=== PATIENT | male | born 1995 | race Caucasian/White ===

== ENCOUNTER 2017-07-17 18:28 | Emergency (ER) | payer SELFPAY ==
[2017-07-17 18:47] VITALS: BP 131/90
== END 2017-07-17 20:58 | disposition left against medical advice (07) ==
LOC: ED 18:28
DX: Z53.21 Procedure and treatment not carried out due to patient leaving prior to being seen by health care provider (principal)

== ENCOUNTER 2017-10-11 17:22 | Emergency (ER) | payer SELFPAY ==
[2017-10-11 17:43] VITALS: BP 120/83
--- NOTE | 2017-10-11 18:24 | XRay Report ---
FINAL REPORT PROCEDURE: XR HAND 3+V LT TECHNIQUE: LEFT hand radiographs, AP, lateral, and oblique views. CPT 79823-PV HISTORY: injury to left thumb COMPARISON: No prior studies are available for comparison. FINDINGS: Fracture (s) and/or Dislocation(s): None . Alignment: Normal . Joint space(s): Normal . Soft tissues: Normal . Bone mineralization: Normal . Foreign bodies: None . IMPRESSION: Normal Examination .
== END 2017-10-11 23:05 | disposition left against medical advice (07) ==
LOC: ED 17:22
DX: M79.645 Pain in left finger(s) (principal); Z53.21 Procedure and treatment not carried out due to patient leaving prior to being seen by health care provider

== ENCOUNTER 2021-07-02 23:00 | Emergency (ER) | payer SELFPAY ==
[2021-07-02 23:35] VITALS: BP 134/92
[2021-07-03] MEDS ORDERED: predniSONE 20 MG TAB PO ONE (01:03)
[2021-07-03] MEDS ORDERED: KETOROLAC 60 MG/2 ML INJ IM ONE (01:03)
--- NOTE | 2021-07-03 01:13 | Emergency Department Report ---
Blank Doc - Documentation Documentation: As I enter the room, patient was on the phone and stated to me that he is on a emergency call in for me to return in a few minutes. Since then, patient was not in his room. I did not examine, interview, or have any interactions with the patient due to patient not being in the room. RN stated was unable to get in touch with the patient. Patient eloped at this time.
== END 2021-07-03 01:34 ==
LOC: ED 23:00
DX: M54.2 Cervicalgia (principal); M25.519 Pain in unspecified shoulder; Z53.21 Procedure and treatment not carried out due to patient leaving prior to being seen by health care provider

== ENCOUNTER 2021-09-10 07:07 | Emergency (ER) | payer SELFPAY | END 2021-09-10 09:15 | disposition left against medical advice (07) | LOC: ED 07:07 | DX: G50.1 Atypical facial pain (principal); Z53.21 Procedure and treatment not carried out due to patient leaving prior to being seen by health care provider ==

== ENCOUNTER 2021-09-13 05:00 | Emergency (ER) | payer SELFPAY ==
[2021-09-13 06:16] VITALS: BP 144/78
--- NOTE | 2021-09-13 06:20 | Emergency Department Report ---
ED ENT HPI - General Chief complaint: Dental/Oral Stated complaint: TOOTH PAIN Time Seen by Provider: 09/13/21 06:15 Source: patient Mode of arrival: Ambulatory Limitations: No Limitations - History of Present Illness Initial comments: 26-year-old -Filipino male presents to the emergency room for improving dental pain and sore throat x6 days. Patient states has been taking ibuprofen. Patient says he has a slight headache. He is unvaccinated. Has not tested for Covid in over a month. Does have a primary care provider. Currently wears bra marline. MD complaint: tooth pain, sore throat Onset/Timin -: days(s) Severity scale (0 -10): 2 Quality: aching Consistency: intermittent Improves with: NSAID Worsens with: none Associated Symptoms: toothache, pain with swallowing, sore throat. denies: fever, cough, gum swelling, tinnitus, hearing loss, discharge from ear, rhinorrhea, other - Related Data Allergies Allergy/AdvReac Type Severity Reaction Status Date / Time No Known Allergies Allergy Verified 07/02/21 23:37 ED Dental HPI - General Chief complaint: Dental/Oral Stated complaint: TOOTH PAIN Time Seen by Provider: 09/13/21 06:15 Source: patient Mode of arrival: Ambulatory Limitations: No Limitations - Related Data Allergies Allergy/AdvReac Type Severity Reaction Status Date / Time No Known Allergies Allergy Verified 07/02/21 23:37 ED Review of Systems ROS: Stated complaint: TOOTH PAIN Other details as noted in HPI Comment: All other systems reviewed and negative ED Past Medical Hx - Past Medical History Previous Medical History?: Yes Additional medical history: laryngitis - Surgical History Past Surgical History?: No - Social History Smoking Status: Current Every Day Smoker Substance Use Type: None ED Physical Exam - General Limitations: No Limitations General appearance: alert, in no apparent distress - Head Head exam: Present: atraumatic, normocephalic - Eye Eye exam: Present: normal appearance - ENT ENT exam: Present: mucous membranes moist - Neck Neck exam: Present: normal inspection, full ROM. Absent: tenderness, lymphadenopathy - Respiratory Respiratory exam: Present: normal lung sounds bilaterally. Absent: respiratory distress - Cardiovascular Cardiovascular Exam: Present: regular rate, normal rhythm. Absent: systolic murmur, diastolic murmur, rubs, gallop - GI/Abdominal GI/Abdominal exam: Present: soft, normal bowel sounds - Rectal Rectal exam: Present: deferred - Extremities Exam Extremities exam: Present: normal inspection - Back Exam Back exam: Present: normal inspection - Neurological Exam Neurological exam: Present: alert, oriented X3, normal gait - Psychiatric Psychiatric exam: Present: normal affect, normal mood - Skin Skin exam: Present: warm, dry, intact, normal color. Absent: rash ED Medical Decision Making - Medical Decision Making 26-year-old -Filipino male presents to the emergency room for improving dental pain and sore throat x6 days. Patient states has been taking ibuprofen. Patient says he has a slight headache. He is unvaccinated. Has not tested for Covid in over a month. Does have a primary care provider. Currently wears b races. Examination is normal do not see any gingival enlargement not erythematous throat with exudate no fever no chills vital signs are all stable none toxic in appearance patient is stable to follow-up with his primary care provider and primary dentist. Critical care attestation.: If time is entered above; I have spent that time in minutes in the direct care of this critically ill patient, excluding procedure time. ED Disposition Clinical Impression: Pain, dental, Sore throat Disposition: 01 HOME / SELF CARE / HOMELESS Is pt being admited?: No Does the pt Need Aspirin: No Condition: Stable Additional Instructions: Continue with ibuprofen as needed. Increase your fluids. Follow-up with a dentist and your primary care provider. Referrals: [facility] [Outside] - 3-5 Days [facility] [Outside] - 3-5 Days [facility] [Outside] - 3-5 Days Forms: Work/School Release Form(ED) Time of Disposition: 06:22
== END 2021-09-13 07:05 | disposition home or self-care (01) ==
LOC: ED 05:00
DX: K08.89 Other specified disorders of teeth and supporting structures (principal); J02.9 Acute pharyngitis, unspecified
CPT/HCPCS: 99282

== ENCOUNTER 2021-09-16 06:21 | Emergency (ER) | payer SELFPAY ==
--- NOTE | 2021-09-16 07:57 | Emergency Department Report ---
ED ENT HPI - General Chief complaint: Sore Throat Stated complaint: MOUTH PAIN Time Seen by Provider: 09/16/21 07:43 Source: patient Mode of arrival: Ambulatory Limitations: No Limitations - History of Present Illness Initial comments: This is a 26-year-old male nontoxic, well nourished in appearance, no acute signs of distress presents to the ED with c/o of acute on chronic intermittent left upper toothache several weeks. Patient denies following up with a dentist. Patient stated that pain radiates from his job to his left side of head. Patient otherwise denies any head trauma. Patient stated has been taking only 200 mg ibuprofen with no significant improvement of pain. Patient describes toothache as aching level of 8 out of 10. Patient denies any facial swelling. Patient denies any numbness, tingling, fever, chills, headache, stiff neck, abdominal pain, chest pain, shortness of breath. Patient denies any drug allergies or significant past medical history. MD complaint: tooth pain Location: tooth # 1 - Pain here Severity: mild Severity scale (0 -10): 8 Quality: aching Consistency: constant Improves with: none Worsens with: none Associated Symptoms: toothache. denies: fever, cough, gum swelling, pain with swallowing, sore throat, tinnitus, hearing loss, discharge from ear, rhinorrhea - Related Data Allergies Allergy/AdvReac Type Severity Reaction Status Date / Time No Known Allergies Allergy Verified 07/02/21 23:37 ED Dental HPI - General Chief complaint: Sore Throat Stated complaint: MOUTH PAIN Time Seen by Provider: 09/16/21 07:43 Source: patient Mode of arrival: Ambulatory Limitations: No Limitations - Related Data Allergies Allergy/AdvReac Type Severity Reaction Status Date / Time No Known Allergies Allergy Verified 07/02/21 23:37 ED Review of Systems ROS: Stated complaint: MOUTH PAIN Other details as noted in HPI Comment: All other systems reviewed and negative Constitutional: denies: chills, fever Eyes: denies: eye pain, eye discharge, vision change ENT: dental pain. denies: ear pain, throat pain, hearing loss, epistaxis, congestion Respiratory: denies: cough, shortness of breath, wheezing Cardiovascular: denies: chest pain, palpitations Endocrine: no symptoms reported Gastrointestinal: denies: abdominal pain, nausea, diarrhea Genitourinary: denies: urgency, dysuria Musculoskeletal: denies: back pain, joint swelling, arthralgia Skin: denies: rash, lesions Neurological: denies: headache, weakness, paresthesias Psychiatric: denies: anxiety, depression Hematological/Lymphatic: denies: easy bleeding, easy bruising ED Past Medical Hx - Past Medical History Additional medical history: laryngitis - Social History Smoking Status: Current Every Day Smoker Substance Use Type: None ED Physical Exam - General Limitations: No Limitations General appearance: alert, in no apparent distress - Head Head exam: Present: atraumatic, normocephalic - Eye Eye exam: Present: normal appearance - Expanded ENT Exam Expanded Ear exam: Present: normal external inspection Mouth exam: Present: normal external inspection. Absent: drooling, trismus, muffled voice Teeth exam: Present: normal inspection, dental tenderness #. Absent: dental caries, fractured tooth #, gingival enlargement 1 - Dental Tenderness Throat exam: Positive: normal inspection, other (uvula midline). Negative: tonsillar erythema, tonsillomegaly, tonsillar exudate, R peritonsillar mass, L peritonsillar mass - Neck Neck exam: Present: normal inspection, full ROM. Absent: tenderness, meningismus, lymphadenopathy - Respiratory Respiratory exam: Absent: respiratory distress - Cardiovascular Cardiovascular Exam: Present: regular rate - Extremities Exam Extremities exam: Present: full ROM - Back Exam Back exam: Present: full ROM - Neurological Exam Neurological exam: Present: alert, oriented X3, normal gait - Psychiatric Psychiatric exam: Present: normal affect, normal mood - Skin Skin exam: Present: warm, dry, intact, normal color. Absent: rash ED Course Vital Signs 09/16/21 07:41 Temperature 97.9 F Pulse Rate 63 Respiratory 20 Rate Blood Pressure 147/95 [Right] O2 Sat by Pulse 100 Oximetry - Reevaluation(s) Reevaluation #1: 09/16/21 07:57 Patient is speaking in full sentences with no signs of distress noted. ED Medical Decision Making - Medical Decision Making 26-year-old male that presents with left-sided wisdom tooth pain. Patient stable and was examined by me. Physical exam otherwise unremarkable. Patient was educated to take 600 mg of ibuprofen every 8 hours for pain. Patient also is given referrals to see a dental specialist. At time of discharge, the patient does not seem toxic or ill in appearance. No acute signs of distress noted. Patient agrees to discharge treatment plan of care. No further questions noted by the patient. Critical care attestation.: If time is entered above; I have spent that time in minutes in the direct care of this critically ill patient, excluding procedure time. ED Disposition Clinical Impression: Pain, dental Disposition: 01 HOME / SELF CARE / HOMELESS Is pt being admited?: No Does the pt Need Aspirin: No Condition: Stable Instructions: Acute Pain, Adult Additional Instructions: Follow-up with a dentist doctor in 3-5 days or if symptoms worsen and continue return to emergency room as soon as possible. Referrals: [facility] [Outside] - 3-5 Days [facility] [Outside] - 3-5 Days Time of Disposition: 08:00
[2021-09-16 08:22] VITALS: BP 144/90
== END 2021-09-16 08:22 | disposition home or self-care (01) ==
LOC: ED 06:21
DX: K08.89 Other specified disorders of teeth and supporting structures (principal); F17.200 Nicotine dependence, unspecified, uncomplicated
CPT/HCPCS: 99282

== ENCOUNTER 2021-10-31 00:56 | Emergency (ER) | payer SELFPAY ==
[2021-10-31 01:02] VITALS: BP 155/112
== END 2021-10-31 03:58 | disposition left against medical advice (07) ==
LOC: ED 00:56
DX: R22.9 Localized swelling, mass and lump, unspecified (principal); Z53.21 Procedure and treatment not carried out due to patient leaving prior to being seen by health care provider

== ENCOUNTER 2021-10-31 09:07 | Emergency (ER) | payer SELFPAY ==
[2021-10-31 09:22] VITALS: BP 130/87
--- NOTE | 2021-10-31 10:29 | Emergency Department Report ---
ED Eye Problem HPI - General Chief complaint: Eye Problems Stated complaint: LEFT EYE SWELLING Time Seen by Provider: 10/31/21 09:58 Source: patient Mode of arrival: Ambulatory Limitations: No Limitations - History of Present Illness Initial comments: Mr. Jay is a 26-year-old male that comes to the emergency room with left eye pain. He denies trauma. He does not wear contact lenses. He states that he woke up with eye swelling. He actually has a stye of his lower lid. It is involving his entire lid. He states that it scratching his eye. He has no tearing. He has no vision change. His globe is intact. His exam is otherwise normal. MD chief complaint: eye pain -: Sudden Location: left eye Place: home If Injury: none Consistency: constant Associated Symptoms: none Treatments Prior to Arrival: none - Related Data Previous Rx's Medication Instructions Recorded Last Taken Type Erythromycin [Erythromycin Ophth 0.5 inch OS Q4H #1 tube 10/31/21 Unknown Rx Oint] Allergies Allergy/AdvReac Type Severity Reaction Status Date / Time No Known Allergies Allergy Verified 07/02/21 23:37 ED Review of Systems ROS: Stated complaint: LEFT EYE SWELLING Other details as noted in HPI Comment: All other systems reviewed and negative ED Past Medical Hx - Past Medical History Previous Medical History?: No Additional medical history: laryngitis - Surgical History Past Surgical History?: No - Family History Family history: no significant - Social History Smoking Status: Current Every Day Smoker Substance Use Type: None - Medications Home Medications: Home Medications Medication Instructions Recorded Confirmed Last Taken Type Erythromycin [Erythromycin Ophth 0.5 inch OS Q4H #1 tube 10/31/21 Unknown Rx Oint] ED Physical Exam - General Limitations: No Limitations General appearance: alert, in no apparent distress - Head Head exam: Present: atraumatic, normocephalic - Eye Eye exam: Present: normal appearance, PERRL, EOMI, other (Stye left lower lid) - ENT ENT exam: Present: mucous membranes moist - Neck Neck exam: Present: normal inspection - Respiratory Respiratory exam: Present: normal lung sounds bilaterally. Absent: respiratory distress - Cardiovascular Cardiovascular Exam: Present: regular rate, normal rhythm. Absent: systolic murmur, diastolic murmur, rubs, gallop - GI/Abdominal GI/Abdominal exam: Present: soft, normal bowel sounds - Rectal Rectal exam: Present: deferred - Extremities Exam Extremities exam: Present: normal inspection - Back Exam Back exam: Present: normal inspection - Neurological Exam Neurological exam: Present: alert, oriented X3 - Psychiatric Psychiatric exam: Present: normal affect, normal mood - Skin Skin exam: Present: warm, dry, intact, normal color. Absent: rash ED Course Vital Signs 10/31/21 09:21 Temperature 97.5 F L Pulse Rate 66 Respiratory 16 Rate Blood Pressure 130/87 O2 Sat by Pulse 96 Oximetry ED Medical Decision Making - Medical Decision Making Vital Signs 10/31/21 09:21 Temperature 97.5 F L Pulse Rate 66 Respiratory 16 Rate Blood Pressure 130/87 O2 Sat by Pulse 96 Oximetry Patient being discharged home with discharge plan of care including diet, medications, activity, eye care, and medications. He verbalizes understanding. - Differential Diagnosis Stye - [id number] Critical care attestation.: If time is entered above; I have spent that time in minutes in the direct care of this critically ill patient, excluding procedure time. ED Disposition Clinical Impression: Hordeolum externum (stye) Qualifiers: Laterality: left Eyelid: lower Qualified Code(s): H00.015 - Hordeolum externum left lower eyelid Disposition: 01 HOME / SELF CARE / HOMELESS Is pt being admited?: No Does the pt Need Aspirin: No Condition: Stable Instructions: Juanpablo Additional Instructions: Warm compresses to the eye Follow-up with PCP next week to make sure it is getting better. Sometimes it can take a while to get rid of this Tylenol or Motrin for pain Antibiotic as ordered today Prescriptions: Erythromycin [Erythromycin Ophth Oint] 0.5 inch OS Q4H #1 tube Referrals: GURPREET RAMOS MD [Staff Physician] - 3-5 Days Time of Disposition: 10:28
== END 2021-10-31 10:38 | disposition home or self-care (01) ==
LOC: ED 09:07
DX: H00.016 Hordeolum externum left eye, unspecified eyelid (principal); F17.200 Nicotine dependence, unspecified, uncomplicated
CPT/HCPCS: 99282

== ENCOUNTER 2022-01-22 11:44 | Emergency (ER) | payer BC ==
[2022-01-22 12:47] VITALS: BP 131/85
--- NOTE | 2022-01-22 12:56 | Emergency Department Report ---
ED Recheck HPI - General Chief Complaint: Anxiety Stated Complaint: PTSD/ANXIETY ATTACK Source: patient Mode of arrival: Ambulatory Limitations: No Limitations - History of Present Illness Initial Comments: 26-year-old black male with a past medical history of PTSD and anxiety presents to the emergency department requesting medication refill. He states that he has not taken medications for anxiety in several weeks, but last night, he witnessed one of his friends thigh which caused him to have high anxiety and he has not been able to sleep since then. He denies SI and HI. Complaint: medication refill request -: Gradual, days(s) (1) Returns Today for: request for prescription Associated Symptoms: none - Related Data Previous Rx's Medication Instructions Recorded Last Taken Type Erythromycin [Erythromycin Ophth 0.5 inch OS Q4H #1 tube 10/31/21 Unknown Rx Oint] ALPRAZolam [Xanax TAB] 0.25 mg PO BID PRN #20 tab 01/22/22 Unknown Rx hydrOXYzine PAMOATE [Vistaril] 25 mg PO Q6HR PRN #30 capsule 01/22/22 Unknown Rx traZODone [Desyrel] 100 mg PO QHS #20 tablet 01/22/22 Unknown Rx Allergies Allergy/AdvReac Type Severity Reaction Status Date / Time No Known Allergies Allergy Verified 07/02/21 23:37 ED Review of Systems ROS: Stated complaint: PTSD/ANXIETY ATTACK Other details as noted in HPI Comment: All other systems reviewed and negative Constitutional: denies: chills, fever ENT: denies: congestion Respiratory: denies: shortness of breath Cardiovascular: denies: chest pain, palpitations Gastrointestinal: denies: abdominal pain, nausea, vomiting Neurological: denies: headache, weakness Psychiatric: denies: auditory hallucinations, visual hallucinations, homicidal thoughts, suicidal thoughts ED Past Medical Hx - Past Medical History Additional medical history: laryngitis - Social History Smoking Status: Current Every Day Smoker Substance Use Type: None - Medications Home Medications: Home Medications Medication Instructions Recorded Confirmed Last Taken Type Erythromycin [Erythromycin Ophth 0.5 inch OS Q4H #1 tube 10/31/21 Unknown Rx Oint] ALPRAZolam [Xanax TAB] 0.25 mg PO BID PRN #20 tab 01/22/22 Unknown Rx hydrOXYzine PAMOATE [Vistaril] 25 mg PO Q6HR PRN #30 capsule 01/22/22 Unknown Rx traZODone [Desyrel] 100 mg PO QHS #20 tablet 01/22/22 Unknown Rx ED Physical Exam - General Limitations: No Limitations General appearance: alert, in no apparent distress - Head Head exam: Present: atraumatic, normocephalic - Eye Eye exam: Present: normal appearance. Absent: conjunctival injection, periorbital swelling, periorbital tenderness - ENT ENT exam: Present: normal exam, normal orophraynx - Neck Neck exam: Present: normal inspection, full ROM. Absent: lymphadenopathy - Respiratory Respiratory exam: Present: normal lung sounds bilaterally. Absent: respiratory distress, wheezes, rales, rhonchi, stridor, chest wall tenderness - Cardiovascular Cardiovascular Exam: Present: regular rate, normal heart sounds - GI/Abdominal GI/Abdominal exam: Present: soft, normal bowel sounds. Absent: distended, tenderness, guarding, rebound, rigid - Extremities Exam Extremities exam: Present: normal inspection, normal capillary refill. Absent: pedal edema, joint swelling, calf tenderness - Back Exam Back exam: Present: normal inspection. Absent: CVA tenderness (R), CVA tenderness (L) - Neurological Exam Neurological exam: Present: alert, oriented X3 - Psychiatric Psychiatric exam: Present: normal affect, normal mood - Skin Skin exam: Present: warm, dry, intact, normal color ED Course Vital Signs 01/22/22 12:45 Temperature 98.9 F Pulse Rate 81 Respiratory 17 Rate Blood Pressure 131/85 [Right] O2 Sat by Pulse 99 Oximetry ED Recheck MDM - Differential Diagnosis Prescription Refill(s) - Medical Decision Making 26-year-old black male with a past medical history of PTSD and anxiety presents to the emergency department requesting medication refill. He states that he has not taken medications for anxiety in several weeks, but last night, he witnessed one of his friends thigh which caused him to have high anxiety and he has not been able to sleep since then. He denies SI and HI. Physical exam unremarkable. Medications refilled as requested. Patient advised to take medication as prescribed and follow-up with his primary care provider or mental health provider for further evaluation and management or return to the emergency department as needed. He verbalizes understanding and agreement with plan of care. Critical care attestation.: If time is entered above; I have spent that time in minutes in the direct care of this critically ill patient, excluding procedure time. ED Disposition Clinical Impression: Medication refill Disposition: 01 HOME / SELF CARE / HOMELESS Is pt being admited?: No Does the pt Need Aspirin: No Condition: Stable Instructions: Generalized Anxiety Disorder, Adult, Alprazolam tablets, Post- Traumatic Stress Disorder, Adult, Insomnia, Managing Anxiety, Adult, Hydroxyzine capsules or tablets Additional Instructions: Take medications as prescribed. Follow-up with your primary care provider or mental health provider for further evaluation and management. Return to the emergency department as needed. Prescriptions: traZODone [Desyrel] 100 mg PO QHS #20 tablet hydrOXYzine PAMOATE [Vistaril] 25 mg PO Q6HR PRN #30 capsule PRN Reason: Anxiety ALPRAZolam [Xanax TAB] 0.25 mg PO BID PRN #20 tab PRN Reason: Anxiety Referrals: GURPREET RAMOS MD [Primary Care Provider] - 3-5 Days [facility] [Outside] - 3-5 Days Forms: Work/School Release Form(ED) Time of Disposition: 12:59
== END 2022-01-22 13:15 | disposition home or self-care (01) ==
LOC: ED 11:44
DX: F41.9 Anxiety disorder, unspecified (principal); Z76.0 Encounter for issue of repeat prescription; F17.200 Nicotine dependence, unspecified, uncomplicated; Z79.899 Other long term (current) drug therapy
CPT/HCPCS: 99282

== ENCOUNTER 2022-02-21 14:40 | Emergency (ER) | payer BC ==
[2022-02-21 16:04] VITALS: BP 135/86
--- NOTE | 2022-02-21 16:21 | Emergency Department Report ---
ED Recheck HPI - General Chief Complaint: Medical Clearance Stated Complaint: STD/ANXIETY ATTACK Time Seen by Provider: 02/21/22 15:56 Source: patient Mode of arrival: Ambulatory Limitations: No Limitations - History of Present Illness Initial Comments: Patient is a 26-year-old male that comes to the emergency room for routine STD past testing. He has no symptoms. He is also requesting a refill of his Xanax, Valium, trazodone and Atarax. No HI no SI. Have informed the patient that we cannot fill his benzos and his trazodone. These are high risk medications to be used combination. I have also informed him we do not do STD testing. He is requesting referrals. - Related Data Previous Rx's Medication Instructions Recorded Last Taken Type hydrOXYzine PAMOATE [Vistaril] 25 mg PO Q6HR PRN #30 capsule 02/21/22 Unknown Rx Allergies Allergy/AdvReac Type Severity Reaction Status Date / Time No Known Allergies Allergy Verified 02/21/22 15:59 ED Review of Systems ROS: Stated complaint: STD/ANXIETY ATTACK Other details as noted in HPI Comment: All other systems reviewed and negative ED Past Medical Hx - Past Medical History Previous Medical History?: Yes Hx Psychiatric Treatment: Yes Additional medical history: laryngitis - Surgical History Past Surgical History?: No - Family History Family history: no significant - Social History Smoking Status: Current Every Day Smoker Substance Use Type: None - Medications Home Medications: Home Medications Medication Instructions Recorded Confirmed Last Taken Type hydrOXYzine PAMOATE [Vistaril] 25 mg PO Q6HR PRN #30 capsule 02/21/22 Unknown Rx ED Physical Exam - General Limitations: No Limitations General appearance: alert, in no apparent distress - Head Head exam: Present: atraumatic, normocephalic - Eye Eye exam: Present: normal appearance - ENT ENT exam: Present: mucous membranes moist - Neck Neck exam: Present: normal inspection - Respiratory Respiratory exam: Present: normal lung sounds bilaterally. Absent: respiratory distress - Cardiovascular Cardiovascular Exam: Present: regular rate, normal rhythm. Absent: systolic murmur, diastolic murmur, rubs, gallop - GI/Abdominal GI/Abdominal exam: Present: soft, normal bowel sounds - Rectal Rectal exam: Present: deferred - Extremities Exam Extremities exam: Present: normal inspection - Back Exam Back exam: Present: normal inspection - Neurological Exam Neurological exam: Present: alert, oriented X3 - Psychiatric Psychiatric exam: Present: normal affect, normal mood - Skin Skin exam: Present: warm, dry, intact, normal color. Absent: rash ED Course Vital Signs 02/21/22 15:59 Temperature 98.3 F Pulse Rate 72 Respiratory 18 Rate Blood Pressure 135/86 [Right] O2 Sat by Pulse 100 Oximetry ED Recheck MDM - Core Measures Measure Exclusions: not indicated - Medical Decision Making Vital Signs 02/21/22 15:59 Temperature 98.3 F Pulse Rate 72 Respiratory 18 Rate Blood Pressure 135/86 [Right] O2 Sat by Pulse 100 Oximetry I have given patient a refill of his Atarax. I have informed him that we cannot refill his Valium or trazodone or Xanax. He has no HI. No SI. He is cooperative. No agitation or psychosis. Referrals given to local primary care/community health organizations for refill of his psychiatric medications and his STD testing. Patient verbalizes understanding of plan of care. Critical care attestation.: If time is entered above; I have spent that time in minutes in the direct care of this critically ill patient, excluding procedure time. ED Disposition Clinical Impression: Medication refill, Screen for STD (sexually transmitted disease) Disposition: HOME / SELF CARE / HOMELESS Is pt being admited?: No Does the pt Need Aspirin: No Condition: Stable Instructions: Safe Sex Additional Instructions: follow up with pcp for std testing and med refill referrals attached Prescriptions: hydrOXYzine PAMOATE [Vistaril] 25 mg PO Q6HR PRN #30 capsule PRN Reason: Anxiety Referrals: GURPREET RAMOS MD [Staff Physician] - 3-5 Days [facility] [Outside] - 3-5 Days [facility] [Outside] - 3-5 Days Forms: Work/School Release Form(ED) Time of Disposition: 16:24
== END 2022-02-21 17:06 | disposition home or self-care (01) ==
LOC: ED 14:40
DX: Z20.2 Contact with and (suspected) exposure to infections with a predominantly sexual mode of transmission (principal); Z76.0 Encounter for issue of repeat prescription; F17.200 Nicotine dependence, unspecified, uncomplicated
CPT/HCPCS: 99282